=== PATIENT | female | born 1950 | race Caucasian/White ===

== ENCOUNTER 2022-09-11 15:31 | Emergency (ER) | payer MEDICAID, MEDICARE ==
[~2022-09-11] VITALS: Ht 167.6 cm; Wt 68.0 kg
[2022-09-11 17:01] LABS: BASOPHILS % 0.2 % (0.0-2.0); EOSINOPHILS % 0.3 % (0.0-5.0); HEMATOCRIT. 40.5 % (36.0-48.0); HEMOGLOBIN. 13.7 g/dL (12.0-16.0); LYMPHOCYTES % 10.3 % (20.0-50.0); MEAN CORPUSCULAR HEMOGLOBIN 29.2 pg (28.0-32.0); MEAN PLATELET VOLUME 10.7 fl (7.4-10.4); MONOCYTES % 5.4 % (2.0-8.0); NEUTROPHILS % 83.8 % (40.0-76.0); PLATELET 179 x1000/uL (130-400); RED CELL DISTRIBUTION WIDTH 14.1 % (11.6-14.6)
[2022-09-11 17:06] LABS: CHLORIDE 100 mEq/L (98-107)
[2022-09-11 17:09] LABS: PROTHROMBIN TIME 10.9 sec (9.6-11.0)
[2022-09-11 17:19] LABS: ETHANOL BLOOD < 10 mg/dL
[2022-09-11] MEDS ORDERED: ACETAMINOPHEN 325MG TABLET PO ONE (18:45)
[2022-09-11 19:10] VITALS: BP 148/76
== END 2022-09-11 19:18 | disposition home or self-care (01) ==
LOC: ER 15:58
DX: R55 Syncope and collapse (principal); S00.83XA Contusion of other part of head, initial encounter; I10 Essential (primary) hypertension; F41.9 Anxiety disorder, unspecified; W01.0XXA Fall on same level from slipping, tripping and stumbling without subsequent striking against object, initial encounter; Y93.89 Activity, other specified; Y92.531 Health care provider office as the place of occurrence of the external cause; Y99.8 Other external cause status
CPT/HCPCS: 36415; 70450; 71045; 80053; 80320; 84484; 85025; 85610; 93005; 99285; Z7610; G0480